=== PATIENT | female | born 1960 | race Caucasian/White ===

== ENCOUNTER 2024-12-02 09:30 | Outpatient (RCR) | payer MEDICARE, BC, SELFPAY ==
--- NOTE | 2024-09-26 12:36 | PT.OPEX ---
PT [place] Out[facility] Eval PT [facility] Outpatient Eval Start: 09/26/24 08:57 Freq: Status: Active Protocol: Document 09/26/24 08:59 NLR (Rec: 09/26/24 12:18 NLR [id number]) E-signed By Lorene Kong DPT Physical Therapy Outpatient Evaluation Insurance Information Recert Due Date 12/25/24 Insurance Name Blue [employer] Medical Diagnosis M17.11 Right knee unilateral osteoarthritis R knee patellofemoral pain Treating Diagnosis M25.561 Right knee pain M25.661 Right knee stiffness Imaging Report Information XRAY 08/13/24: Normal alignment without medial or lateral joint space narrowing or osteophytic spurring. There is lateral compartment osteophytic spurring. There is lateral patellar facet joint space narrowing and osteophytic spurring. There is patella [place]. ASSESSMENT: Right knee patellofemoral joint osteoarthritis, early lateral compartment osteoarthritis Referring MD Rayshawn Minaya MD Subjective Preferred Name PHYLLIS Subjective Phyllis arrives for PT evaluation with a one month history of anterior knee pain on the right, no known injury. She woke up with a cramp in her foot, got out of bed and knee pain was immediate knee pain. It has spontaneously improved over the last month, but it is still present. Symptoms are worse with stairs, mostly going down. Pain Comments 5/10 Initially pain was sharp and constant, could not lift leg up. Couldn't sit in the car (couldn't lift leg into car). She has tried Tylenol, ibuprofen and heat. She states it never swelled. Overall, her symptoms are improved by approximately 90%, but knees feel stiff and feels full and heavy. She denies N/T or issues with her back. 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 She walks for exercise in the summer, but not so much in the winter. Precautions Weight Bearing Status Full Weight Bearing Therapy Limitations/Systems Review Not Limited Objective Other/Pertinent Objective HAND DOM: RIGHT ROM: WFL, 0-120 B STRENGTH: Grossly WFL POSTURE: FHON, forward rounded shoulders, lumbar hyperlordosis, L>R foot pronation, R bunion (had bunionectomy at age 16), L high PSIS PALPATION: Mild tenderness L>R pes anerine EDEMA: Mild LEFT knee peripatellar edema SPECIAL TESTS: + B patellar grind, + B [place] FUNCTIONAL: Able to sit 60 minutes. Able to stand indefinitely minutes. Able to walk indefinitely minutes. GAIT: Normal FLEXIBILITY: Hypoflexibility noted at B IT band, B piriformis, B quad, B hamstrings. FOOTWEAR: Patient arrives wearing [employer] Step Ins that does not provide adequate medial arch support. They do wear supportive footwear in the house. OTHER PMH: Remote history of breast cancer, osteoporosis, HTN Assessment Assessment/Impression Phyllis is a 64-year-old female who presents for skilled PT evaluation presenting with R>L knee pain and stiffness which is consistent with patellofemoral pain in the setting of tight IT bands, weak VMO, left anteriorly rotated innominate and unsupported medial arches. Patient is an appropriate candidate for skilled physical therapy to target deficits described above. Skilled PT intervention is necessary to achieve goals as stated. D/C plan and criteria is for patient to achieve the goals as outlined or until max rehab potential is met. Patient was agreeable with plan of care and goals established. Plan of Care Rehabilitation Potential Good Rehabilitation Potential Comments Patient is otherwise healthy and motivated to improve in order to return to prior level of function. Physical Therapy Goals 1. Patient will be independent with home exercise program as instructed, modified and progressed by physical therapist in order to be independently and actively participating in their rehabilitation and return to prior level of function. Goal to be achieved by 12/23/2024. 2. Patient will ascend/descend 2 full flight(s) of stairs with etba-dppy-avlh pattern without significant increase in difficulty or pain over 2/ 10 allowing for safe and independent mobility through their home/work environment. Goal to be achieved by 2024. Coordination/Communication With Referral Source Treatment Plan/Direct Interventions Dry Needling,Manual Therapy, Neuromuscular Re-ed,Self-Care/ Home Management,Therapeutic Activities,Therapeutic Exercises Frequency/Duration 1X/week for 6-8 weeks Patient Will Be Discharged From Therapy Completion of LTG(s),Skills Plateau,Independent w/HEP, Independently Progressing Discharge Plan Comments HEP Evaluation Billing Untimed Code Treatment Minutes 20 PT Eval No Charge No Complexity Low Certification Information Initial Certification Date 09/26/24 Ending Certification Date 12/25/24 Provider Signature Required Yes Provider Signature Shows Agreement With POC & Medical Necessity Physician NPI Number Write NPI# Here Physician Comment/Change : Physician Signature & Date Requested Please Sign/Date Here
== END 2024-12-02 15:45 | disposition home or self-care (01) ==
PROVIDERS: Visit Provider Orthopaedic Surgery
DX: M17.11 Unilateral primary osteoarthritis, right knee (principal); M25.561 Pain in right knee; M25.661 Stiffness of right knee, not elsewhere classified; M25.662 Stiffness of left knee, not elsewhere classified; M25.562 Pain in left knee; Z51.89 Encounter for other specified aftercare
CPT/HCPCS: 97110; 97112; 97161

== ENCOUNTER 2025-01-22 09:33 | Emergency (ER) | payer MEDICARE, BC, SELFPAY ==
--- OUTSIDE RECORDS SUMMARY | 2024-12-10 15:40 | XMS_ITS | Encounter Summary ---
Author Organization [facility] Address [address] [place] [address] Care Team Providers Care Needle Control Cheniller Name Role Phone Lucia Posadas APRN, C.N.P., D.N.P. P [facility] Care Provider Reason for Referral * Outpatient (Routine) - Authorized Specialty Diagnoses / Procedures Referred By Contac t Referred To Contact General Surgery Diagnoses Abscess Perianal Timmy Amos M.D. [address] [place] [address] Phone: tel: fax: [facility] Region Referral ID Status Reason Start Date Expiration Date Visits Requested Visits Authorized [id number] Authorized Specialty Services Required 12/10/2024 06/11/2026 1 1 Reason for Visit * Reason Comments Other Bump on buttocks kacie t might need to be drained. * Appointment Request (Routine) - Closed Specialty Diagnoses / Procedures Referred By Contac t Referred To Contact Family Medicine Referral ID Status Reason Start Date Expiration Date Visits Re quested Visits Authorized [id number] Closed 11/29/2024 03/01/2026 1 1 Encounter Details Date Type Department Care Team (Late st Contact Info) Description 12/10/2024 3:40 PM CDT Office Visit Department of Family Medicine, [facility], in [place], [place] [address] [place] [phone] Timmy Amos M.D. [address] [place] [address] [place] [phone] Abscess Perianal (Primary Dx); Hypertensive Chronic Kidney Disease With Stage 1 Through Stage 4 Chronic Kidney Disease, Or Unspecified Chronic Kidney Disease; Osteoporosis Social History Tobacco Use Types Packs/Day Years Used Date Smoking Tobacco: Former Smokeless Tobacco: Never Tobacco Cessation:Counseling Given: Not Answered Alcohol Use Standard Drinks/Week Comments Not Currently 0 (1 standard drink = 0.6 oz pur e alcohol) [facility] Utilities Answer Date Recorded In the past 12 months has e [employer], gas, oil, or water [employer] threatened to shut off services in your home? No 06/26/2024 Humiliation, Afraid, Rape, and Kick questionnair e Answer Date Recorded Within the last year, have y ou been afraid of your partner or ex-partner? No 06/14/2022 Within the last year, have y ou been humiliated or emotionally abused in other ways by your partner or ex-partner? No Within the last year, have y ou been kicked, hit, slapped, or otherwise physically hurt by your partner or ex-partner? No 06/14/2022 Within the last year, have y ou been raped or forced to have any kind of sexual activity by your partner or ex-partner? No 06/14/2022 Social Connection and Isolat ion Panel [NHANES] Answer Date Recorded In a typical week, how many times do you talk on the phone with family, friends, or neighbors? Three times a week 06/14/2022 How often do you get togethe r with friends or relatives? Twice a week 06/14/2022 How often do you attend chur ch or jewish services? More than 4 times per year 06/14/2022 Do you belong to any clubs o r organizations such as hindu groups, unions, fraternal or athletic groups, or school groups? Yes 06/14/2022 How often do you attend meet ings of the clubs or organizations you belong to? 1 to 4 times per year 06/14/2022 Are you , , di vorced, , never , or living with a partner? 06/14/2022 AUDIT-C Answer Date Recorded Q1: How often do you have a drink containing alc ohol? Never 06/14/2022 Average Number of Drinks Not on file 022 Frequency of Binge Drinking Not on file 06/04 Overall Financial Resource Strain (CARDIA) Answe r Date Recorded How hard is it for you to pa y for the very basics like food, housing, medical care, and heating? Not hard at all 06/18/2023 PHQ-2 Answer Date Recorded PHQ-2 Score 0 12/05/2024 [facility] of Occupat ional Health - Occupational Stress Questionnaire Answer Date Recorded Do you feel stress - tense, restless, nervous, or anxious, or unable to sleep at night because your mind is troubled all the time - these days? Only a little 06/14/2022 Exercise Vital Sign Answer Date Recorde d On average, how many days pe r week do you engage in moderate to strenuous exercise (like a brisk walk)? 4 days 06/26/2024 On average, how many minutes do you engage in exercise at this level? 30 min 06/26/2024 Hunger Vital Sign Answer Date Recorded Within the past 12 months, y ou worried that your food would run out before you got the money to buy more. Never true 06/26/20 24 Within the past 12 months, t he food you bought just didn't last and you didn't have money to get more. Never true 06/26/2024 PRAPARE - Transportation Answer Date Re corded In the past 12 months, has l ack of transportation kept you from medical appointments or from getting medications? No 06/05 In the past 12 months, has l ack of transportation kept you from meetings, work, or from getting things needed for daily living? No 06/26/2024 Nutrition Answer Date Recorded On average, how many serving s of fruits and vegetables do you eat per day (serving size is equal to 1 cup or approximately the size of a tennis ball)? 3-5 06/26/2024 Dental Answer Date Recorded Dental: Regular Dentist Yes 06/14/20 Employment Answer Date Recorded Employment status Retired 06/26/2024 Housing Stability Answer Date Recorded What is your living situation today? I have a [facility] place to live 06/26/2024 Education Answer Date Recorded What is the highest level of school you have completed or the highest degree you have received? 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 Gender Identity Female 05/10/2018 7:45 PM CDT Sexual Orientation Straight 05/10/2018 7: 45 PM CDT documented as of this encounter Last Filed Vital Signs Vital Sign Reading Time Taken Comments Blood Pressure 135/74 12/10/2024 3:32 PM CDT Pulse 69 12/10/2024 3:32 PM CDT Temperature 35.9 C (96.6 F) 12/10/2024 3:32 PM CDT Respiratory Rate 16 12/10/2024 3:32 PM CDT Oxygen Saturation - - Inhaled Oxygen Concentration - - Weight 73.9 kg (162 lb 14.7 oz) 12/10/2024 3:32 PM CDT Height 168.4 cm (5' 6.3) 12/10/2024 3:32 PM CDT Body Mass Index 26.06 12/10/2024 3:32 PM CDT documented in this encounter Progress Notes * Timmy Amos M.D. - 12/10/2024 3:40 PM CDT Progress Note Natasha Grider is a 64 y.o. female with past medical history significant for osteoporosis, breast cancer, hypertension with chronic kidney disease stage 2, hypothyroidism, hyperlipidemia who presentstoday for evaluation of a lump in the left buttock area. - Presenting with a recurrent bump on left buttock, first occurred approximately one year ago (January 2024), I and D was done - Describes it as uncomfortable rather than painful, aware of its presence - No fever reported - No significant pain, describes it as not terribly painful - Previously had an abscess in the same area that became large, drained, and was treated with Keflex - Reports the bump was gone for a long time but has returned in the last few weeks - History of external Haemorrhoids - Osteoporosis - under endocrinology care - Takes Dulcolax occasionally and Culturelle daily for bowel management - Currently taking vitamin D3 supplement (1,000-2,000 IU daily) Allergies Allergen Reactions Doxycycline Hyclate Other (see comments) Vomiting Current Medications[1] Medical History[2] Social History[3] REVIEW OF SYSTEMS Vitals: 12/10/24 1532 BP: 135/74 BP Location: Right arm Patient Position: Sitting Cuff Size: Regular Pulse: 69 Resp: 16 Temp: (!) 35.9 ??C TempSrc: Temporal Weight: 73.9 kg Height: 168.4 cm Constitutional Appearance: She is well-developed. HENT Head: Normocephalic and atraumatic. Right Ear: External ear normal. Left Ear: External ear normal. Nose: Nose normal. Eyes Conjunctiva/sclera: Conjunctivae normal. Pupils: Pupils are equal, round, and reactive to light. Cardiovascular Rate and Rhythm: Normal rate and regular rhythm. Heart sounds: Normal heart sounds. Pulmonary Effort: Pulmonary effort is normal. No respiratory distress. Breath sounds: Normal breath sounds. Abdominal General: Bowel sounds are normal. There is no distension. Palpations: Abdomen is soft. There is no mass. Tenderness: There is no abdominal tenderness. There is no guarding. Musculoskeletal General: Normal range of motion. Cervical back: Normal range of motion and neck supple. Skin General: Skin is warm and dry. Neurological Mental Status: She is alert and oriented to person, place, and time. Deep Tendon Reflexes: Reflexes are normal and symmetric. Psychiatric Behavior: Behavior normal. Natasha was seen today for other. Diagnoses and all orders for this visit: Swelling Perianal Hemorrhoids - General Surgery - General consult (clinic); Future - Assessment: Differential diagnosis including epidermal cyst, lipoma or recurrent abscess - Treatment: No antibiotics required at present. Advised to: - Use cushion when sitting to avoid pressure on the area - Take sitz baths (warm water, 10-15 minutes) if uncomfortable - Take ibuprofen or paracetamol for discomfort - Maintain soft stools to avoid straining - Continue current bowel regimen - Referral: Surgical referral placed for evaluation and possible excision of the lesion Hypertensive Chronic Kidney Disease With Stage 1 Through Stage 4 Chronic Kidney Disease, Or Unspecified Chronic Kidney Disease - Blood pressure well controlled on lisinopril 5 mg daily and hydrochlorothiazide 25 mg daily Osteoporosis - Vitamin D, Immunoassay, Total, Serum; Future - Investigations: Vitamin D level ordered today - Assessment: Under endocrinology care - Investigations: Vitamin D level ordered today - Treatment: Continue current vitamin D3 supplement (1,000-2,000 IU daily), will adjust based on results - Plan: Follow endocrinology recommendations - repeat bone density in two years, consider resuming therapy with 3+5mg IV annually for three years if significant decline [1] Current Outpatient Medications: calcium citrate-vitamin D3 (CITRACAL PETITES) 200 mg calcium -250 unit per tablet, Take 1 tablet bymouth 2 (two) times a day with meals. , Disp: , Rfl: CHOLECALCIFEROL, VITAMIN D3, ORAL, Take by mouth daily., Disp: , Rfl: hydroCHLOROthiazide (HydroDiuril) 25 mg tablet, take one tablet by mouth one time daily, Disp: 90 tablet, Rfl: 3 levothyroxine 50 mcg tablet, TAKE ONE TABLET BY MOUTH ONE TIME DAILY, Disp: 90 tablet, Rfl: 3 lisinopriL 5 mg tablet, Take 1 tablet (5 mg total) by mouth daily., Disp: 90 tablet, Rfl: 3 simvastatin (Zocor) 20 mg tablet, take one tablet by mouth at bedtime, Disp: 90 tablet, Rfl: 3 alendronate (Fosamax) 70 mg tablet, TAKE 1 TABLET BY MOUTH ONCE WEEKLY ON AN EMPTY STOMACH WITH A BIG GLASS OF WATER. DO NOT LIE DOWN FOR 60 MINUTES AFTERWARDS. (Patient not taking: Reported on 12/10/2024), Disp: 12 tablet, Rfl: 3 triamcinolone (Kenalog) 0.1 % cream, Apply to affected area 1-2 times daily as needed. Avoid face and groin. (Patient not taking: Reported on 12/10/2024), Disp: 80 g, Rfl: 0 [2] Past Medical History: Diagnosis Date Cancer Breast Personal History 2001 Hyperlipidemia 2019? Hypertension And Chronic Kidney Disease Stage 2 06/01/2021 Hypertension NOS 2021? Hypothyroidism Acquired 05/16/2019 Osteoporosis 2012? Polyp Colon 2022 [3] Social History Tobacco Use Smoking status: Former Smokeless tobacco: Never Vaping Use Vaping status: never used Substance Use Topics Alcohol use: Not Currently Drug use: Never documented in this encounter Plan of Treatment Scheduled Referrals Name Type Priority Associated Diagnoses Orde r Schedule General Surgery - General consult (clinic) Outpatient Referral Routine Abscess Perianal Expected: 12/10/2024, Expires: 03/11/2026 documented as of this encounter Results * Vitamin D, Immunoassay, Total, Serum (12/10/2024 4:11 PM CDT) Vitamin D, Immunoassay, Total, S 39 20 - 80 ng/mL 12/10/2024 7:50 PM CDT MKTO Comment: Optimum levels within the healthy population are 20-50, patients with bone disease may benefit from high levels within this range Blood (Blood, Venous) 12/10/2024 4:11 PM CDT 12/10/2024 7:14 PM CDT us Timmy Amos M.D. LAB BLOOD ADD-ON Final Resul t [facility] [address] [place] [address], [facility] [place] [address] [place] [address] documented in this encounter Visit Diagnoses Diagnosis Abscess Perianal- Primary Hypertensive Chronic Kidney Disease With Stage 1 Through Stage 4 Chronic Kidney Disease, Or Unspecified Chronic Kidney Disease Osteoporosis documented in this encounter Additional Health Concerns Assessment Noted Time PHQ-9 Depression Total Score: 0 05/01/20 17 8:41 AM CDT documented as of this encounter Care Teams Needle Control Cheniller Relationship Specialty Start Date End Date Lucia Posadas APRN, C.N.P., D.N.P. [address] [place] [phone] PCP - General 02/27/23 documented as of this encounter
--- OUTSIDE RECORDS SUMMARY | 2024-12-10 16:04 | XMS_ITS | Encounter Summary ---
Author Organization [facility] Address [address] [place] [address] Care Team Providers Care Representative Government Relations Name Role Phone Lucia Posadas APRN, C.N.P., D.N.P. P [facility] Care Provider Encounter Details Date Type Department Care Team (Latest Contact Info) Description 12/10/2024 4:04 PM CDT - 12/10/2024 11:59 PM CDT Hospital Encounter Department of Laboratory Medicine in [address] [phone] Timmy Amos M.D. [address] [place] [phone] Osteoporosis Discharge Disposition: Home or Self Care Social History Tobacco Use Types Packs/Day Years Used Date Smoking Tobacco: Former Smokeless Tobacco: Never Alcohol Use Standard Drinks/Week Comments Not Currently 0 (1 standard drink = 0.6 oz pur e alcohol) [facility] Utilities Answer Date Recorded In the past 12 months has e electric, gas, oil, or water company threatened to shut off services in your [...] often do you attend chur ch or yazidi services? More than 4 times per year 06/14/2022 Do you belong to any clubs o r organizations such as cheondoism groups, unions, fraternal or athletic groups, or [...] Answer Date Recorded PHQ-2 Score 0 12/05/2024 [facility] of Occupat ional Health - Occupational Stress [...] your living situation today? I have a [facility] place to live 06/26/2024 Education Answer Date Recorded What is the highest level of school you have completed or the highest degree you have received? 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 04/26/2012 CHOLECALCIFEROL, VITAMIN D3, ORAL Take by mouth daily. 04/09/2012 hydroCHLOROthiaz simone (HydroDiuril) 25 mg tablet take one tablet by mouth one time daily 90 tablet 3 05/01/2024 levothyroxine 50 mcg tabletIndication s:Hypothyroidism Acquired TAKE ONE TABLET BY MOUTH ONE TIME DAILY 90 tablet 3 07/10/2024 lisinopriL 5 mg tablet Take 1 tablet (5 mg total) by mouth daily. 90 tablet 3 07/01/2024 simvastatin (Zocor) 20 mg tabletIndication s:Hyperlipidemia Mixed take one tablet by mouth at bedtime 90 tablet 3 05/01/2024 triamcinolone (Kenalog) 0.1 % cream Apply to affected area 1-2 times daily as needed. Avoid face and groin. 80 g 07/01/2024 alendronate (Fosamax) 70 mg tabletIndication s:Osteoporosis TAKE 1 TABLET BY MOUTH ONCE WEEKLY ON AN EMPTY STOMACH WITH A BIG GLASS OF WATER. DO NOT LIE DOWN FOR 60 MINUTES AFTERWARDS. 12 tablet 3 05/01/2024 12/12/2024 documented as of this encounter Plan of Treatment Not on file documented as of this encounter Procedures Procedure Name Priority Date/Time Associated Diagnosis Comments VITAMIN D, IMMUNOASSAY, TOTAL, S Routine 12/10/2024 4:11 PM CDT Osteoporosis documented in this encounter Results * Vitamin D, Immunoassay, [...] M.D. LAB BLOOD ADD-ON Final Resul t [facility] [address] [place] [address], [facility] MK[facility] [place] [address] [place] [address] documented in this encounter Visit Diagnoses Diagnosis Osteoporosis documented in this encounter Additional Health Concerns Assessment Noted Time PHQ-9 Depression Total Score: 0 05/01/20 17 8:41 AM CDT documented as of this encounter Care Teams Representative Government Relations Relationship Specialty Start Date End Date Gómez-Lucia De Leon APRN, C.N.P., D.N.P. [address] [place] [phone] PCP - General 02/27/23 documented as of this encounter
[2025-01-22 09:39] VITALS: BP 158/83; PULSE 80; RESP 18; TEMP 37; O2SAT 95; BMI 25.8
--- NOTE | 2025-01-22 09:53 | CRLHL7_ITS ---
For Patients: As a result of the Cures Act, medical imaging exams and procedure reports are released immediately into your electronic medical record. You may view this report before your referring provider. If you have questions, please contact your health care provider. Indication: rt thoracic pain, rib pain Technique: PA view of the chest. Three views of the right ribs. Comparison: None. Findings: Normal cardiomediastinal silhouette. No focal consolidation, pleural effusions, or visualized pneumothorax. Left axillary surgical clips. No acute displaced right rib fractures are seen. Impression: No acute cardiopulmonary disease. No acute displaced right rib fractures are seen. Dictated by Denny Squires MD @ 01/22/2025 10:37:31 AM (Electronically Signed)
--- NOTE | 2025-01-22 09:54 | ED.GENADULT ---
HPI - General Adult General Chief complaint: Back Injury/Pain Stated complaint: upper right back pain Time Seen by Provider: 01/22/25 09:46 History of Present Illness HPI narrative: Patient is a 64 year white female who is generally healthy who was getting off the couch on Monday and felt a popping sensation in her chest wall on the right side. Since then she has had progressive pain in her periscapular area down to her lower right ribcage area posterior lateral posterior axillary line area. She has had pain to palpation and with certain twisting movements. No shortness of breath, no diaphoresis but definitely movement makes it worse sometimes palpation make it worse. She has had no history of rib trouble before no history of lung issues. No bleeding or clotting no recent travel no history of leg swelling or edema. Related Data Home Medications ?Medication ?Instructions ?Recorded ?Confirmed hydrochlorothiazide 25 mg tablet 25 mg PO DAILY 07/30/24 01/22/25 levothyroxine 50 mcg tablet 50 mcg PO DAILY 07/30/24 01/22/25 lisinopril 5 mg tablet 5 mg PO DAILY 07/30/24 01/22/25 simvastatin 20 mg tablet 20 mg PO QPM 07/30/24 01/22/25 Previous Rx's ?Medication ?Instructions ?Recorded celecoxib 200 mg capsule (Celebrex) 200 mg PO DAILY #10 caps 01/22/25 methylprednisolone 4 mg tablets in See Rx Instructions PO .COMPLEX 01/22/25 a dose pack (Medrol (Raghu)) #21 ea tramadol 100 mg tablet 100 mg PO Q8H PRN pain #14 tabs 01/22/25 Allergies Allergy/AdvReac Type Severity Reaction Status Date / Time doxycycline Allergy Vomiting Verified 01/22/25 09:45 Review of Systems Status of ROS: Reports: 6 or more systems reviewed and unremarkable except as noted in History and below [facility] Medical History Right ankle sprain ?S93.401A - Sprain of unspecified ligament of right ankle, initial encounter (ICD-10) Hyperplastic colon polyp ?K63.5 - Polyp of colon (ICD-10) Breast cancer ?C50.919 - Malignant neoplasm of unspecified site of unspecified female breast (ICD-10) Surgical History History of bunionectomy ?Z98.890 - Other specified postprocedural states (ICD-10) History of appendectomy ?Z90.49 - Acquired absence of other specified parts of digestive tract (ICD-10) History of lumpectomy ?Z98.890 - Other specified postprocedural states (ICD-10) Exam Narrative: Exam Narrative: Objective: In general patient is no apparent distress, she is afebrile, O2 sat 95% on room air Alert or x3 mild distress when she moves or twists. She is alert as mention No cyanosis Pulses regular Heart regular AB lungs are clear bilaterally Some palpable tenderness along her parascapular and lower thoracic posterior rib cage on the right, no rashes noted no redness or erythema or ecchymosis. Const: Vital Signs, click to edit/add: Vital Signs - 24 hr 01/22/25 09:39 Temperature 98.6 F Pulse Rate [Right Pulse Oximeter] 80 Respiratory Rate 18 Blood Pressure [Ri ght Upper Arm] 158/83 H Pulse Oximetry 95 Oxygen Delivery Me thod Room Air Course Vital Signs Vital signs: Initial Vital Signs Temperature 98.6 F 01/22/25 09:39 Temperature Source Temporal Artery Scan 01/22/25 09:39 Pulse Rate 80 01/22/25 09:39 Pulse Rhythm Regular 01/22/25 09:39 Pulse Strength 3+ Normal 01/22/25 09:39 Respiratory Rate 18 01/22/25 09:39 Blood Pressure 158/83 H 01/22/25 09:39 Blood Pressure Mean 108 H 01/22/25 09:39 Blood Pressure Position Sitting 01/22/25 09:39 Pulse Oximetry 95 01/22/25 09:39 Oxygen Delivery Method Room Air 01/22/25 09:39 Vital Signs Temperature 98.6 F 01/22/25 09:39 Pulse Rate 80 01/22/25 09:39 Respiratory Rate 18 01/22/25 09:39 Blood Pressure 158/83 H 01/22/25 09:39 Pulse Oximetry 95 01/22/25 09:39 Oxygen Delivery Method Room Air 01/22/25 09:39 Temperature 98.6 F 01/22/25 09:39 Pulse Rate 80 01/22/25 09:39 Respiratory Rate 18 01/22/25 09:39 Blood Pressure 158/83 H 01/22/25 09:39 Pulse Oximetry 95 01/22/25 09:39 Oxygen Delivery Method Room Air 01/22/25 09:39 Medications Administered Medications: Discontinued Medications Generic Name Dose Route Start Last Admin Trade Name Patrick PRN Reason Stop Dose Admin Morphine Sulfate 10 mg 01/22/25 09:53 01/22/25 10:09 Morphine 10 Mg/Ml Inj IM 01/22/25 09:54 10 mg ONCE ONE Administration Medical Decision Making [facility] Narrative Medical decision making narrative: [age] year white female with a history of progressive right posterior ribcage pain parascapular pain since getting off a couch and hearing a ?popping? sensation. Patient certainly could have a rib fracture, could have a muscle intercostal muscle strain. At this point will give her IV IM morphine and check a chest x-ray and rib detail of the right ribs. Disposition pending findings. Patient likely would benefit from some anti-inflammatory and perhaps even a steroid medication at home. She was comfortable plan at this point. She does have a hook up driver for home. Addendum 10:13 a.m. patient has a chest x-ray that shows a 6th minimally displaced rib fracture. Looks posterior. No obvious pneumothorax. Recommend pain control, observation, ice as described above. Recheck with regular doctor next 5-7 days for reassessment. Discharge Plan Discharge Clinical Impression: Acute chest wall pain, Fracture of right sixth rib Patient Disposition: Home w/ Parent or Adult Condition: Improved Instructions: Rib Fracture (ED) Additional Instructions: Light activity, ice to the chest wall for 10 minutes 3 4 times a day, meds as prescribed, recheck the regular doctor next 3-4 days, return to the ED sooner problems changes or concerns. Activity Level: Light activity Discharge Diet: Regular Prescriptions: New celecoxib [Celebrex] 200 mg capsule 200 mg PO DAILY Qty: 10 3RF methylprednisolone [Medrol (Raghu)] 4 mg tablets,dose pack See Rx Instructions .ROUTE .COMPLEX Qty: 21 0RF Rx Instructions: orally per package directions tramadol 100 mg tablet 100 mg PO Q8H PRN (Reason: pain) Qty: 14 0RF No Action levothyroxine 50 mcg tablet 50 mcg PO DAILY lisinopril 5 mg tablet 5 mg PO DAILY hydrochlorothiazide 25 mg tablet 25 mg PO DAILY simvastatin 20 mg tablet 20 mg PO QPM Follow Up/Referrals: Provider,Not a Local [Primary Care Provider, Family Practice] Stand Alone Forms: MyHealth Info Instructions
[2025-01-22] MEDS: MORPHINE 10 MG/ML inj IM (10:09)
--- OUTSIDE RECORDS SUMMARY | 2025-01-22 10:48 | XMS_ITS | Clinical Summary ---
Author Organization [facility] Address [address] [place] [address] Care Team Providers Care Rn Case Manager Hospice Name Role Phone Lucia Posadas APRN, C.N.P., D.N.P. P [facility] Care Provider Source Comments Patient records contain information from all sites at [facility]. For routine questions regarding patient records, call [phone] during business hours, M-F 8:00 AM - 5:00 PM Central Time. Record requests for emergency care only can be directed to [phone] at any time.[facility] Allergies Active Allergy Reactions Criticality Noted Date Comments Doxycycline Hyclate Other (see comments) 2024 Vomiting Medications calcium citrate-vitamin D3 (CITRACAL PETITES) 200 mg calcium -250 unit per tablet Take 1 tablet by mouth 2 (two) times a day with meals. 2 Active CHOLECALCIFEROL , VITAMIN D3, ORAL Take by mouth daily. 2 Active hydroCHLOROthia zide (HydroDiuril) 25 mg tablet take one tablet by mouth one time daily 90 tablet 3 4 Active simvastatin (Zocor) 20 mg tabletIndicatio ns:Hyperlipidem ia Mixed take one tablet by mouth at bedtime 90 tablet 3 4 Active triamcinolone (Kenalog) 0.1 % cream Apply to affected area 1-2 times daily as needed. Avoid face and groin. 80 g 4 Active Additional Information Patient not taking.Reported on 12/10/2024 lisinopriL 5 mg tablet Take 1 tablet (5 mg total) by mouth daily. 90 tablet 3 4 Active levothyroxine 50 mcg tabletIndicatio ns:Hypothyroidi sm Acquired TAKE ONE TABLET BY MOUTH ONE TIME DAILY 90 tablet 3 4 Active Active Problems Problem Noted Date Diagnosed Date Hypertensive Chronic Kidney Disease With Stage 1 Through Stage 4 Chronic Kidney Disease, Or Unspecified Chronic Kidney Disease 06/01/2021 Hypothyroidism Acquired 05/16/2019 Cancer Breast Personal History 04/03/2019 Hyperlipidemia Mixed 05/01/2017 Polyp Colon 04/27/2012 Overview (05/15/2018): Overview: Colonoscopy 04/2012 polyp repeat in 10 years Osteoporosis 04/07/2010 Resolved Problems Problem Noted Date Diagnosed Date Resolved Date Deficiency Vitamin D 04/09/2012 019 Malignant Neoplasm Of Unspec ified Site Of Laterality Unknown Female Breast 03/29/2010 019 Overview (01/24/2017): Breast Cancer Female left Encounters Date Type Department Care Team Description 12/16/2024 Clinical Communication Department of [facility], [facility], [address] [address] Lucia Posadas APRN, C.N.P., D.N.P. 12/11/2024 [facility] [address] [address] Mone Garcia, L.P.N. Vitamin D, Immunoassay, Total, Serum 12/10/2024 4:04 PM CDT - 12/10/2024 11:59 PM CDT Hospital Encounter Department of Laboratory Medicine [address] [address] Timmy Amos M.D. Osteoporosis Discharge Disposition: Home or Self Care 12/10/2024 3:40 PM CDT Office Visit Department of Family Medicine, [facility], in [address] [place] [address] Timmy Amos M.D. Abscess Perianal (Primary Dx); Hypertensive Chronic Kidney Disease With Stage 1 Through Stage 4 Chronic Kidney Disease, Or Unspecified Chronic Kidney Disease; Osteoporosis 12/06/2024 8:27 AM CDT - 12/06/2024 11:59 PM CDT Hospital Encounter Department of Radiology in [address] [address] Timmy Amos M.D. Well Adult Examination Normal; Screening Mammogram Breast Cancer Discharge Disposition: Home or Self Care from Last 3 Months Immunizations Immunization Administration Dates Next Due DT, Pediatric 02/05/2005 HepB, Unspecified 07/26/2000,02/11/2000,01/11/20 00 Influenza, Injectable, Quadrivalent 06/12/2020,0 05/30/2017 Influenza, Seasonal, Injectable 06/21/2007,07/18 Influenza, Unspecified 05/23/2016,2010,06/18/2010,2008,06/25/2008 PCV20 07/01/2024 RZV (SHINGRIX) 11/22/2019,09/01/2019 Tdap 06/21/2022,04/05/2012 influenza trivalent high dos e (HD)(PF) 06/04/2024 influenza trivalent vaccine (6 months and older)(PF) 05/27/2009 influenza vaccine QV(FLUBLOK ) (18 years or older) (PF) 06/17/2021 influenza vaccine quad (FLUZONE/FLUARIX) (6 months and older)(PF) 06/07/2023,06/24/2022,06/11/2019,2017 Family History Medical History Relation Name Comments Hypertension Father 1 2003 Hypertension Mother 1 2011 Osteoarthritis Mother 1 Osteoporosis Mother 2 Zoila Diallo Osteoporosis Sister 1 Sairajosh Garcia Osteoporosis Sister 2 Saira Del Cidkennedy Garcia Drug addiction Son Relation Name Status Comments Father 1 Father 2 Joel Imani Mother 1 Mother 2 Zoila Imani Sister 1 Saira Garcia Alive Sister 2 Saira Garcia Alive Son Social History Tobacco Use Types Packs/Day Years Used Date Smoking Tobacco: Former Smokeless Tobacco: Never Tobacco Cessation:Counseling Given: Not Answered Alcohol Use Standard Drinks/Week Comments Not Currently 0 (1 standard drink = 0.6 oz pur e alcohol) [facility] Utilities Answer Date Recorded In the past [...] often do you attend chur ch or zoroastrianism services? More than 4 times per year 06/14/2022 Do you belong to any clubs o r organizations such as mosque groups, unions, fraternal or athletic groups, or [...] Answer Date Recorded PHQ-2 Score 0 12/05/2024 [facility] of Occupat ional [facility] - Occupational Stress Questionnaire Answer Date Recorded [...] money to buy more. Never true 06/26/20 Within the past 12 months, t he [...] your living situation today? I have a [facility] place to live 06/26/2024 Education Answer Date Recorded What is the highest level of school you have completed or the highest degree you have received? 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, [employer]) 05/12/2019 Comments No Sex and Gender Information Value Date Recorded Sex Assigned at Female 05/10/2018 7:45 PM CDT Legal Sex Female 9:23 AM ROLLER MECHANIC Gender Identity Female 05/10/2018 7:45 PM CDT Sexual Orientation Straight 05/10/2018 7: 45 PM CDT Last Filed Vital Signs Vital Sign Reading Time Taken Comments Blood Pressure 135/74 12/10/2024 3:32 PM CDT Pulse 69 12/10/2024 3:32 PM CDT Temperature 35.9 C (96.6 F) 12/10/2024 3:32 PM CDT Respiratory Rate 16 12/10/2024 3:32 PM CDT Oxygen Saturation 96% 06/27/2023 8:5 1 AM CDT Room air at rest Inhaled Oxygen Concentration - - Weight 73.9 kg (162 lb 14.7 oz) 12/10/2024 3:32 PM CDT Height 168.4 cm (5' 6.3) 12/10/2024 3: 32 PM CDT Body Mass Index 26.06 12/10/2024 3:32 PM CDT Plan of Treatment Health Maintenance Due Date Last Done Comments CT Colonography 1959 Cologuard 1960 Hepatitis C Screening 1960 Visit: Medicare Annual Wellness 1960 COVID-19 Vaccine ( season) 2024 06/14/2024, 06/14/2023, 07/07/2022, Additional history exists Cervical/Vaginal Cancer Screening 05/19/2025 05/19/2020, 05/19/2020, 05/01/2017, Additional history exists Creatinine Level (Kidney Function Test) 06/28/2025 06/28/2024, 06/22/2023, 06/02/2022, Additional history exists Potassium Level 06/28/2025 06/28/2024, 08/05, 06/22/2023, Additional history exists Sodium Level 06/28/2025 06/28/2024, 08/05, 06/22/2023, Additional history exists Thyroid Stimulating Hormone (TSH) test for thyroid function 06/28/2025 06/28/2024, 06/22/2023, 06/02/2022, Additional history exists Mammogram 12/06/2025 12/06/2024, 11/2023, 11/29/2022, Additional history exists Office Visit for Blood Pressure Check / Re-check 12/10/2025 12/10/2024 Visit: Chronic Disease, age 18+ 12/10/2025 12/10/2024 Colonoscopy 06/07/2027 06/07/2022, 1012/2021 (Performed elsewhere), 04/27/2012 Colorectal Cancer Surveillance 06/07/2027 Fasting Glucose for Diabetes Screening 06/28/2027 06/28/2024, 06/22/2023, 06/02/2022, Additional history exists Lipid (Cholesterol) Screening 07/08/2029 07/08/2024, 06/02/2022, 06/01/2021, Additional history exists DTaP,Tdap,and Td Vaccines (4 - Td or Tdap) 06/21/2032 06/21/2022, 04/05/2012, 02/05/2005 Hepatitis B Vaccines Completed 07/26/2000, 02/11/2000, 01/11/2000 Zoster Vaccines Completed 11/22/2019, 09/01/2019 Influenza Vaccine Completed 06/04/2024, , 06/24/2022, Additional history exists Pneumococcal vaccine (50+ years) Completed 07/01/2024 Depression Screening (Annual PHQ-2) Completed 12/10/2024, 12/05/2024 Fall Risk Screen (Annual) Completed 12/10/2024 IPV Vaccines Aged Out No longer eligi ble based on patient's age to complete this topic Procedures Procedure Name Priority Date/Time Associated Diagnosis Comments VITAMIN D, IMMUNOASSAY, TOTAL, S Routine 12/10/2024 4:11 PM CDT Osteoporosis BI BREAST SCREENING BILATERAL WITH TOMOSYNTHESIS RAD - Routine (most inpatients and all outpatients) 12/06/2024 8:50 AM CDT Well Adult Examination Normal Screening Mammogram Breast Cancer LIPID PANEL, S Routine 07/08/2024 9:04 AM ROLLER MECHANIC Hyperlipidemia THYROID-STIMULATING HORMONE-SENSITIVE (S-TSH) Routine 06/28/2024 7:54 AM CDT Hypothyroidism BASIC METABOLIC PANEL, S/P Routine 06/28/2024 7:54 AM CDT Monitoring For Therapeutic Drug Therapy THINPREP W/HPV CO-TEST SCREEN Routine 05/19/2020 8:45 AM CDT Pap Smear Examination from Last 3 Months or Most Recently Relevant to Health Maintenance Results * Vitamin D, Immunoassay, Total, Serum [...] M.D. LAB BLOOD ADD-ON Final Resul t [facility] [address] [place] [address], [place] [address] * BI Breast Screening Bilateral with Tomosynthesis (12/06/2024 8:50 AM CDT) Anatomical Region Laterality Modality Breast, Breast Imaging RST L OS, Breast Imaging ARZ LOS, Breast Imaging FLA LOS Bilateral Mammography Impressions 12/06/2024 11:31 AM CDT Benign. RECOMMENDATION: Annual Screening Mammogram ASSESSMENT: BI-RADS: 2: Benign. Narrative 12/06/2024 11:31 AM CDT EXAM: BI BREAST SCREENING BILATERAL WITH TOMOSYNTHESIS Current study was evaluated with a Computer Aided Detection (CAD) system. INDICATION: Screening mammogram. COMPARISON: Prior exam(s) were available and reviewed for comparison. DENSITY: b. There are scattered areas of fibroglandular density. FINDINGS: No mammographic findings of malignancy. Post treatment changes of the left breast. Procedure Note Montana Boyle M.D. - 12/06/2024 EXAM: BI BREAST SCREENING BILATERAL WITH TOMOSYNTHESIS Current study was evaluated with a Computer Aided Detection (CAD) system. INDICATION: Screening mammogram. COMPARISON: Prior exam(s) were available and reviewed for comparison. DENSITY: b. There are scattered areas of fibroglandular density. FINDINGS: No mammographic findings of malignancy. Post treatment changesof the left breast. IMPRESSION: Benign. RECOMMENDATION: Annual Screening Mammogram ASSESSMENT: BI-RADS: 2: Benign. us Timmy Amos M.D. IMG BI PROCEDURES Final Resu lt * (ABNORMAL) Lipid Panel (07/08/2024 9:04 AM ROLLER MECHANIC) Triglycerides 186(H) mg/dL 07/08/2024 1:58 PM ROLLER MECHANIC OWAT Comment: ----REFERENCE VALUE---- Normal: <150 mg/dL Borderline High: 150-199 mg/dL High: 200-499 mg/dL Very High: > or =500 mg/dL Cholesterol, Total 160 mg/dL 2023 1:58 PM ROLLER MECHANIC OWAT Comment: ----REFERENCE VALUE---- Desirable: < 200 mg/dL Borderline High: 200 - 239 mg/dL High: > or = 240 mg/dL Cholesterol, LDL, Calculated 79 mg/dL 07/08/2024 1:58 PM ROLLER MECHANIC OWAT Comment: ----REFERENCE VALUE---- Desirable: <100 mg/dL Above Desirable: 100-129 mg/dL Borderline High: 130-159 mg/dL High: 160-189 mg/dL Very High: >=190 mg/dL ----ADDITIONAL INFORMATION---- LDL cholesterol calculated using the Barber/NIH equation. Cholesterol, HDL 50 >=50 mg/dL 07/08/20 1:58 PM ROLLER MECHANIC OWAT Cholesterol, Non-HDL, Calculated 110 mg/dL 07/08/2024 1:58 PM ROLLER MECHANIC OWAT Comment: ----REFERENCE VALUE---- Desirable: <130 mg/dL Above Desirable: 130-159 mg/dL Borderline High: 160-189 mg/dL High: 190-219 mg/dL Very High: > or =220 mg/dL Fasting (8 HR or more) Yes 07/08/2024 9:04 AM ROLLER MECHANIC OWAT Blood (Blood, Venous) 07/08/2024 9:04 AM ROLLER MECHANIC 07/08/2024 1:10 PM ROLLER MECHANIC us Timmy Amos M.D. LAB BLOOD ADD-ON Final Resul t Performing Organization Address [facility] de Phone Number [facility] [address] [place] [address], [facility] OWAT [facility] in [place] [address] [place] [address] * S-TSH (Thyroid-Stimulating Hormone - Sensitive) (06/28/2024 7:54 AM CDT) TSH, Sensitive 2.6 0.3 - 4.2 mIU/L 06/28/2024 1:57 PM CDT OWAT Blood (Blood, Venous) 06/28/2024 7:54 AM CDT 06/28/2024 1:19 PM CDT us Lucia Posadas APRN, C.N.P., D.N.P. LA B BLOOD ADD-ON Final Result Performing Organization Address [facility] de Phone Number [facility] [address] [place] [address], [facility] OWAT [facility] in [place] [address] [place] [address] * (ABNORMAL) Basic Metabolic Panel (06/28/2024 7:54 AM CDT) Potassium, P 3.6 3.6 - 5.2 mmol/L 06/28/2024 1:51 PM CDT OWAT Sodium, P 138 135 - 145 mmol/L 06/28/2024 1:51 PM CDT OWAT Chloride, P 98 98 - 107 mmol/L 06/28/2024 1:51 PM CDT OWAT Bicarbonate, P 30(H) 22 - 29 mmol/L 06/28/2024 1:51 PM CDT OWAT Anion Gap, P 10 7 - 15 06/28/2024 1:51 PM CDT OWAT BUN (Blood Urea Nitrogen), P 15 6 - 21 mg/dL 06/28/2024 1:51 PM CDT OWAT Creatinine 0.78 0.59 - 1.04 mg/dL 06/28/2024 1:51 PM CDT OWAT Estimated GFR (eGFR) 84 >=60 mL/min/BSA 06/28/2024 1:51 PM CDT OWAT Comment: Estimated GFR calculated using the 2020 CKD_EPI creatinine equation. Calcium, Total, P 9.8 8.8 - 10.2 mg/dL 06/28/2024 1:51 PM CDT OWAT Glucose, P 95 70 - 140 mg/dL 06/28/2024 1:51 PM CDT OWAT Blood (Blood, Venous) 06/28/2024 7:54 AM CDT 06/28/2024 1:19 PM CDT us Lucia Posadas APRN, C.N.P., D.N.P. LA B BLOOD ADD-ON Final Result [facility] [address] [place] [address], [place] OWAT [facility] in [place] [address] [place] [address] * ThinPrep w/HPV Co-Test Screen (05/19/2020 8:45 AM CDT) 05/21/2020 1:38 PM CDT [facility] Report electronically signed by PAMELA Fulton(ASCP) I verify that I have examined all relevant slides/materials for the specimen(s) and rendered or confirmed the diagnosis. 05/21/2020 1:38 PM CDT [facility] Gross Description Received specimen in a ThinPrep vial. 05/21/2020 1:38 PM CDT [facility] Pap Test Source Cervical/Endocervi matthieu 05/21/2020 1:38 PM CDT [facility] Hormone Therapy/Contracep tives None/Not known 05/21/2020 1:38 PM CDT [facility] Interpretation Cervical/Endocervi matthieu (ThinPrep): Satisfactory for Evaluation Negative for Intraepithelial Lesion or Malignancy High Risk HPV: Negative Negative for High Risk HPV by nucleic acid amplification. The following High Risk HPV types were not detected: 16, 18, 31, 33, 35, 39, 45, 51, 52, 56, 58, 59, 66, and 68. 05/21/2020 1:38 PM CDT [facility] Varies (Cervix/Endocerv ix) 05/19/2020 8:45 AM CDT 05/19/2020 3:09 PM CDT us Rg Yeh APRNNKaterinaP., R.N. LAB PAP PATHDX ORDERABLES Final Result [facility] [address] [place] [address], [facility] [address] [place] [address] from Last 3 Months or Most Recently Relevant to Health Maintenance Insurance [facility] MEDICARE Care Teams Rn Case Manager Hospice Relationship Specialty Start Date End Date Gómez-Lucia De Leon APRN, C.N.P., D.N.P. [address] [place] [address] PCP - General 02/27/23
--- OUTSIDE RECORDS SUMMARY | 2025-01-22 10:48 | XMS_ITS | Encounter Summary ---
Author Organization [facility] Address [address] [place] [address] Care Team Providers Care Nuclear Station Operator Name Role Phone Lucia Posadas APRN, C.N.P., D.N.P. P [facility] Care Provider Encounter Details Date Type Department Care Team (Late st Contact Info) Description 12/11/2024 Results Follow-Up Department of Family Medicine, [facility], in [place] [address] [place] [address] Mone Garcia, L.P.N. [address] [address] Vitamin D, Immunoassay, Total, Serum Social History Tobacco Use Types Packs/Day Years Used Date Smoking Tobacco: Former Smokeless Tobacco: Never Alcohol Use Standard Drinks/Week Comments Not Currently 0 (1 standard drink = 0.6 oz pur e alcohol) [facility] Utilities Answer Date Recorded In the past 12 months has [facility] [employer], gas, oil, or water [employer] threatened to shut off services in your [...] often do you attend chur ch or worship services? More than 4 times per year 06/14/2022 Do you belong to any clubs o r organizations such as catholic groups, unions, fraternal or athletic groups, or [...] Answer Date Recorded PHQ-2 Score 0 12/05/2024 [facility] of Occupat ional Health - Occupational Stress [...] your living situation today? I have a [facility] place to live 06/26/2024 Education Answer Date Recorded What is the highest level of school you have completed or the highest degree you have received? 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, [employer]) 05/12/2019 Comments No Sex and Gender Information Value Date Recorded Sex Assigned at Female 05/10/2018 7:45 PM CDT Legal Sex Female 9:23 AM LEAD RAMP AGENT Gender Identity Female 05/10/2018 7:45 PM CDT Sexual Orientation Straight 05/10/2018 7: 45 PM CDT documented as of this encounter Plan of Treatment Not on file documented as of this encounter Visit Diagnoses Not on filedocumented in this encounter Additional Health Concerns Assessment Noted Time PHQ-9 Depression Total Score: 0 05/01/20 17 8:41 AM CDT documented as of this encounter Care Teams Nuclear Station Operator Relationship Specialty Start Date End Date Lucia Posadas APRN, C.N.P., D.N.P. [address] [place] [address] PCP - General 02/27/23 documented as of this encounter
--- OUTSIDE RECORDS SUMMARY | 2025-01-22 10:48 | XMS_ITS | Clinical Summary ---
Author Organization [facility] Address [address] [place] [id number] Care Team Providers Care Cylinder Block Hole Reliner Name Role Phone Naomi Gill NP Primary Care Provider Allergies No known active allergies Medications simvastatin (ZOCOR) 20 mg tablet Take 1 tablet by mouth at bedtime. 0 2 Active alendronate (FOSAMAX) 70 mg tablet Take 1 tablet by mouth once a week in the morning. Take on empty stomach with full glass of water. Do not lie down for 1 hr. 0 2 Active calcium citrate-vitamin D3 (CITRACAL ULTRADENSE) 200 mg calcium -250 unit tablet Take by mouth once daily. 0 2 Active polyethylene glycol-electroly te (GOLYTELY) 236-22.74-6.74 -5.86 gram suspensionIndica tions:Encounter for screening colonoscopy Drink 2 liters (half of the gallon) the day before colonoscopy and drink 2 liters (other half of gallon) 4-6 hours before colonoscopy appointment 4000 mL 2 Active Active Problems Problem Noted Date Diagnosed Date Colon polyp 06/08/2022 Overview (06/08/2022): Colonoscopy 06/2022 SSA, repeat in 5 years Hyperplastic colon polyp 04/27/2012 Overview (04/27/2012): Colonoscopy 04/2012 polyp repeat in 10 years Social History Tobacco Use Types Packs/Day Years Used Date Smoking Tobacco: Former Smokeless Tobacco: Never Alcohol Use Standard Drinks/Week Comments Not Currently 0 (1 standard drink = 0.6 oz pur e alcohol) Comments Unknown Sex and Gender Information Value Date Recorded Sex Assigned at Not on file Legal Sex Female 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 Gender Identity Not on file Sexual Orientation Not on file Obstetrics History Last Filed Vital Signs Vital Sign Reading Time Taken Comments Blood Pressure 120/75 04/26/2012 11:20 AM CDT Pulse 73 04/26/2012 11:20 AM CDT Temperature - - Respiratory Rate - - Oxygen Saturation 97% 04/26/2012 11:20 AM CDT Inhaled Oxygen Concentration - - Weight - - Height - - Body Mass Index - - Plan of Treatment Health Maintenance Due Date Last Done Comments Tdap 1970 Depression screening for age 12+ 1971 HIV for age 15-65 1974 BMI (ht and wt on same day) for age 18+ 1977 Hepatitis C screening for age 18-79 1977 Tetanus booster 1979 Pap test for age 21-65 1980 Lipids for age 45-75 2004 Mammogram for age 45-75 2004 Pneumococcal series for age 50+ (1 of 1 - PCV) 2009 Zoster (shingles) series for age 50+ (1 of 2) 2009 COVID-19 vaccine series ( season) 2024 12/22/2021, 07/22/2021, 01/05/2021, Additional history exists DEXA/DXA scan for age 65+ 2024 Influenza Vaccine (Season Ended) 2025 Colonoscopy through age 75 06/07/202706/07, 06/07/2022, 04/26/2012, Additional history exists RSV vaccine for adults or (1 - 1-dose 75+ series) 2034 Hepatitis B series for 19+ Aged Out N o longer eligible based on patient's age to complete this topic Procedures Procedure Name Priority Date/Time Associated Diagnosis Comments COLONOSCOPY 06/07/2022 8:19 AM CDT from Last 3 Months or Most Recently Relevant to Health Maintenance Results * COLONOSCOPY (06/07/2022 8:19 AM CDT) 06/07/2022 8:19 AM CDT Narrative Transcriptions Leonides Rai MD - 06/07/2022 10:23 AM CDT Patient Name: Natasha Grider Procedure Date: 06/07/2022 Gender: Female Date of : 1960 Admit Type: Outpatient Procedure: Colonoscopy Proceduralist: Leonides Rai MD , Elvia Hutchins RN (Nurse), Blanca Baptiste (Nurse) Indications/Pre-Op Diagnosis: Screening for colorectal malignant neoplasm, Last colonoscopy: April 2012 Medications: Fentanyl 100 micrograms IV, Midazolam 2 mgIV, The level of sedation administered wasmoderate Procedure Description: The patient had risks, benefits and alternatives explained to andgave informed consent. The patient had a stable cardiopulmonary status and judged an adequate candidate for conscious sedation. The Colonoscope was passed through the anus and advanced to thececum, identified by appendiceal orifice and ileocecal valve. Thecolonoscopy was performed without difficulty. The patient tolerated the procedure well. The quality of the bowel preparation was good. The ileocecal valve, appendiceal orifice, and rectum were photographed. Complications: No immediate complications. Estimated Blood Loss & Specimen: Estimated blood loss: none. Specimen collected - Yes and sent to Laboratory Findings: The perianal and digital rectal examinations were normal. A 2 mm polyp was found in the sigmoid colon. The polyp was sessile.The polyp was removed with a cold biopsy forceps. Resection and retrieval were complete. The exam was otherwise without abnormality on direct and retroflexion views. Impressions/Post-Op Diagnosis: - One 2 mm polyp in the sigmoid colon, removed with a cold biopsy forceps. Resected and retrieved. - The examination was otherwise normal on direct and retroflexionviews. Recommendation: - Patient has a contact number available for emergencies. The signsand symptoms of potential delayed complications were discussed with the patient. Return to normal activities tomorrow. Written discharge instructions were provided to the patient. - Resume previous diet. - Continue present medications. - Await pathology results. - Repeat colonoscopy is recommended. The colonoscopy date will be determined after pathology results from today's exam become available for review. Moderate Sedation: A time out was performed before the procedure. Moderate (conscious) sedation was administered by the endoscopy nurse and supervised bythe endoscopist. The following parameters were monitored: oxygensaturation, heart rate, blood pressure, EKG, CO2, respiratory rate, adequacy of pulmonary ventilation and reponse to care. Please refer to the patient's medical record flowsheets and nursing notes for moderate sedation details. Total physician intraservice time was 19 minutes. Leonides Rai MD 06/07/2022 10:23:11 AM This report has been signed electronically. Note Initiated On: 06/07/2022 8:19 AM Procedure Code(s): --- Professional --- 67368, Colonoscopy, flexible; with biopsy, single or multiple Diagnosis Code(s): --- Professional --- Z12.11, Encounter for screening formalignant neoplasm of colon D12.5, Benign neoplasm of sigmoid colon CPT copyright 2020 [employer]. All rights reserved. The codes documented in this report are preliminary and upon dive superintendent reviewmay be revised to meet current compliance requirements. Scope In: 9:57:08 AM Scope Withdrawal Time 0 hours 8 minutes 24 seconds Scope Out: 10:14:07 AM us Leonides Rai MD PROCEDURE ORD Final Res ult from Last 3 Months or Most Recently Relevant to Health Maintenance Care Teams Cylinder Block Hole Reliner Relationship Specialty Start Date End Date Naomi Gill NP PCP - General Nurse Practitioner 04/26/12
--- OUTSIDE RECORDS SUMMARY | 2025-01-22 10:48 | XMS_ITS | Encounter Summary ---
Author Organization [facility] Address [address] [place] [address] Care Team Providers Care Cigar Making Supervisor Name Role Phone Lucia Posadas APRN, C.N.P., D.N.P. P [facility] Care Provider Reason for Referral * MRI/CAT/PET Scan (Routine) - Authorized Specialty Diagnoses / Procedures Referred By Contac t Referred To Contact Radiology Diagnoses Abscess Perianal Procedures CT Pelvis without and with IV Contrast Timmy Amos M.D. [address] [place] [address] Phone: tel: fax: [facility] Referral ID Status Reason Start Date Expiration Date V isits Requested Visits Authorized [id number] Authorized 12/16/2024 03/18/2026 1 1 Encounter Details Date Type Department Care Team (Late st Contact Info) Description 12/16/2024 Clinical Communication Department of Family Medicine, [facility], in [place], [place] [address] [place] [address] Lucia Posadas APRN, C.N.P., D.N.P. [address] [place] [phone] Social History Tobacco Use Types Packs/Day Years Used Date Smoking Tobacco: Former Smokeless Tobacco: Never Alcohol Use Standard Drinks/Week Comments Not Currently 0 (1 standard drink = 0.6 oz pur e alcohol) [facility] Utilities Answer Date Recorded In the past 12 months has th e electric, gas, oil, or water company [...] often do you attend chur ch or presybeterian services? More than 4 times per year 06/14/2022 Do you belong to any clubs o r organizations such as evangelical groups, unions, fraternal or athletic groups, or [...] Answer Date Recorded PHQ-2 Score 0 12/05/2024 [facility] - Occupational Stress [...] your living situation today? I have a [facility] [place] place to live 06/26/2024 Education Answer Date Recorded What is the highest level of school you have completed or the highest degree you have received? 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, [employer], [employer]) 05/12/2019 Comments No Sex and Gender Information Value Date Recorded Sex Assigned at Female 05/10/2018 7:45 PM CDT Legal Sex Female 9:23 AM MAT PACKER Gender Identity Female 05/10/2018 7:45 PM CDT Sexual Orientation Straight 05/10/2018 7: 45 PM CDT documented as of this encounter Miscellaneous Notes * Telephone Encounter - Leonila TorrezNeris vail - 12/16/2024 12:34 PM CDT General surgery order denied: Imaging needed if she has a mass, if this is for hemorrhoids will need to see colorectal. documented in this encounter Plan of Treatment Scheduled Orders Name Type Priority Associated Diagnoses Order Schedule CT Pelvis without and with IV Contrast Imaging RAD - Routine (most inpatients and all outpatients) Abscess Perianal Expected: 12/16/2024, Expires: 03/17/2026 Creatinine with Estimated GFR Lab Routine Abscess Perianal 1 Occurrences starting 12/16/2024 until 03/17/2026 documented as of this encounter Visit Diagnoses Diagnosis Abscess Perianal- Primary documented in this encounter Additional Health Concerns Assessment Noted Time PHQ-9 Depression Total Score: 0 05/01/20 17 8:41 AM CDT documented as of this encounter Care Teams Cigar Making Supervisor Relationship Specialty Start Date End Date Bowman-Lucia De Leon, SULY, C.N.P., D.N.P. [address] [place] [phone] PCP - General 02/27/23 documented as of this encounter
== END 2025-01-22 10:40 | disposition home or self-care (01) ==
LOC: ED 10:46
PROVIDERS: Emergency Provider Family Medicine
DX: S22.31XA Fracture of one rib, right side, initial encounter for closed fracture (principal); R07.89 Other chest pain
CPT/HCPCS: 71101; 96372; 99284; J2270